=== PATIENT | male | born 1975 | race Caucasian/White ===

== ENCOUNTER 2024-07-01 12:06 | Emergency (ER) | payer SELFPAY ==
[~2024-07-01] VITALS: Ht 172.7 cm; Wt 72.5 kg
[2024-07-01 12:38] VITALS: TEMP 98.3; O2SAT 100
[2024-07-01] MEDS ORDERED: CLON1TAB23 MT (14:39)
[2024-07-01] MEDS: CLONAZEPAM 1MG TABLET PO ONE (15:25)
[2024-07-01 15:39] VITALS: BP 110/84; PULSE 84; RESP 18; O2SAT 99
== END 2024-07-01 15:40 | disposition home or self-care (01) ==
LOC: ER 12:06
DX: F41.9 Anxiety disorder, unspecified (principal); Z76.0 Encounter for issue of repeat prescription
CPT/HCPCS: 99283

== ENCOUNTER 2024-08-06 14:44 | Emergency (ER) | payer MEDICAID ==
[~2024-08-06] VITALS: Ht 175.3 cm; Wt 75.0 kg
[~2024-08-06 14:44] MED LIST: CLON1TAB23 MT
[2024-08-06 14:45] VITALS: O2SAT 99
[2024-08-06 15:53] LABS: BASOPHILS % 0.7 % (0.0-2.0); HEMATOCRIT. 46.1 % (42.0-52.0); HEMOGLOBIN. 15.8 g/dL (14.0-18.0); MEAN CORPUSCULAR HEMOGLOBIN 29.1 pg (28.0-32.0); MEAN CORPUSCULAR HGB CONC 34.2 g/dL (31.0-37.0); MEAN CORPUSCULAR VOLUME 85.1 fL (80.0-94.0); MEAN PLATELET VOLUME 9.4 fl (7.4-10.4); MONOCYTES % 5.7 % (2.0-8.0); NEUTROPHILS % 73.6 % (40.0-76.0); PLATELET 169 x1000/uL (130-400); RED BLOOD CELL COUNT 5.42 mill/uL (4.7-6.1); RED CELL DISTRIBUTION WIDTH 15.1 % (11.6-14.6); WHITE BLOOD COUNT 8.7 x1000/uL (4.5-11.0)
[2024-08-06 15:54] LABS: CHLORIDE 110 mEq/L (98-107); SODIUM 142 mEq/L (136-145)
[2024-08-06 15:55] LABS: CALCIUM 9.8 mg/dL (8.7-10.4); CARBON DIOXIDE 23 mEq/L (21-32)
[2024-08-06] MEDS: LEVETIRACETAM 1000MG PREMIX 100 ML IV ONE (15:57)
[2024-08-06] MEDS: LORAZEPAM 2MG/ML INJ IV ONE (15:57)
[2024-08-06 16:00] LABS: CREATININE 0.9 mg/dL (0.6-1.3); GLUCOSE 83 mg/dL (70-105); UREA NITROGEN BLOOD 14 mg/dL (9-23)
[2024-08-06 17:42] VITALS: TEMP 36.61404
[2024-08-06] MEDS: CLONAZEPAM 1MG TABLET PO ONE (18:44)
[2024-08-06] MEDS ORDERED: CLON1TAB12 MT (20:11)
[2024-08-06 20:48] VITALS: BP 119/63; PULSE 66; RESP 18; O2SAT 100
[2024-08-07] MEDS ORDERED: CLON1TAB23 PO (09:24)
== END 2024-08-06 21:03 | disposition home or self-care (01) ==
LOC: ER 14:56
DX: F13.239 Sedative, hypnotic or anxiolytic dependence with withdrawal, unspecified (principal); R51.9 Headache, unspecified
CPT/HCPCS: 80048; 85025; 36415; 71045; 72100; 70450; 96365; 96375; 99285; J1953; J2060; Z7610 ×2